=== PATIENT | female | born 1950 | race American Indian/Alaskan Native ===

== ENCOUNTER 2017-07-20 11:15 | Outpatient (CLI) | payer MEDICARE ==
--- NOTE | 2017-07-20 13:31 | Ultrasound Report ---
RENAL ULTRASOUND: 07/20/17 CLINICAL: Right renal cyst on MRI. No comparison images and no report of the MRI. FINDINGS: High resolution ultrasound demonstrated normal renal collecting systems. Normal echogenicity of the kidneys. No renal mass, cyst or calculus. The right kidney measures 9.3 x 3.9 x 4.2-cm. The renal parenchyma measures 1.1-cm in thickness. The left kidney measures 9.4 x 5.4 x 4.7-cm. The renal parenchyma measures 1.6-cm in thickness. Normal urinary bladder with moderate distention and normal wall thickness. IMPRESSION: Normal kidneys. A right renal cyst is not identified to correlate with the reported cyst identified by MRI. This is understandable particularly if it is a small cyst since MRI may be more sensitive than ultrasound in identifying small cysts.
== END 2017-07-20 11:16 | disposition home or self-care (01) ==
LOC: SPVWC 11:15
PROVIDERS: ATTEND Internal Medicine
DX: N28.1 Cyst of kidney, acquired (principal); N32.89 Other specified disorders of bladder
CPT/HCPCS: 76770

== ENCOUNTER 2020-08-05 11:08 | Outpatient (CLI) | payer MEDICARE | END 2020-08-05 11:09 | disposition home or self-care (01) | LOC: SPVWC 11:08 | PROVIDERS: ATTEND Internal Medicine | DX: Z12.31 Encounter for screening mammogram for malignant neoplasm of breast (principal) | CPT/HCPCS: 77067 ==

== ENCOUNTER 2021-08-10 11:39 | Outpatient (CLI) | payer MEDICARE, BC ==
--- NOTE | 2021-08-11 08:07 | Mammography Report ---
DIGITAL SCREENING MAMMOGRAM WITH CAD, 08/10/2021 CLINICAL INFORMATION / INDICATION: Routine screening mammography. TECHNIQUE: Digital bilateral 2D mammography was obtained in the craniocaudal and mediolateral obliqu e projections. This examination was interpreted with the benefit of Computer-Aided Detection analysis . COMPARISON: 08/05/2020 FINDINGS: Breast Density: There are scattered areas of fibroglandular density. No dominant mass, suspicious calcifications, or architectural distortion in the right breast. There is questionable focal architectural distortion in the lateral left breast, seen best on the cc view. IMPRESSION: Questionable developing architectural distortion in the left lateral breast. Recommend sp ot compression views and possible left breast ultrasound. Follow up recommendation: Special View: Spot BI-RADS Category 0: Incomplete. Needs additional imaging evaluation and/or prior mammograms for louis patel. A "normal" or negative report should not discourage follow up or biopsy of a clinically significant f inding. A written summary of these findings will be mailed to the patient. The patient will be entered into a mammography reporting system which will generate a reminder letter for the patient's next appointmen t at the appropriate interval. The [employer] recommends yearly mammograms starting at age 40 and continuing as l robert as a woman is in good health. Breast MRI is recommended for women with an approximate 20-25% or greater lifetime risk of breast cancer, including women with a strong family history of breast or ova seng cancer or who have been treated for Hodgkin's disease. Signer Name: Dianelys Mancuso MD Signed: 08/11/2021 8:02 AM Workstation Name: [id number]
== END 2021-08-10 11:40 | disposition home or self-care (01) ==
LOC: SPVWC 11:39
PROVIDERS: ATTEND Internal Medicine
DX: Z12.31 Encounter for screening mammogram for malignant neoplasm of breast (principal); N64.89 Other specified disorders of breast
CPT/HCPCS: 77067

== ENCOUNTER 2021-08-25 13:14 | Outpatient (CLI) | payer MEDICARE, BC ==
--- NOTE | 2021-08-25 16:30 | Ultrasound Report ---
LEFT DIGITAL DIAGNOSTIC MAMMOGRAM WITH CAD , 08/25/2021 LEFT LIMITED BREAST ULTRASOUND CLINICAL INFORMATION / INDICATION: Abnormal screening mammogram. Screening recall of the left breast for possible architectural distortion TECHNIQUE: Digital left mammographic imaging was performed. Spot compression views were obtained. Shaw ited ultrasound was performed. This examination was interpreted with the benefit of Computer-Aided De tection (CAD) analysis. COMPARISON: Screening mammogram, 08/10/2021 and 08/05/2020 FINDINGS: Breast Density: There are scattered areas of fibroglandular density. MAMMOGRAPHIC FINDINGS: Spot compression views of the left breast demonstrate resolution of the previo usly noted questioned asymmetry in the lateral aspect of the breast. No suspicious mammographic findi ng is identified. ULTRASOUND FINDINGS: Targeted ultrasound evaluation was performed of the area of interest. Sonograp hic evaluation of the lateral left breast demonstrates no evidence of suspicious solid mass or shadow ing. A 4 mm cyst is incidentally noted at the 6:00 position. IMPRESSION: 1. The questioned asymmetry in the lateral left breast resolves with spot compression views and is li david related to overlapping fibroglandular tissue. There is no sonographic abnormality. Therefore, a six-month follow-up left mammogram is recommended to confirm stability. Follow up recommendation: Short term follow up in 6 months. BI-RADS Category 3: Probably Benign. Followup in 6 months. A "normal" or negative report should not discourage follow up or biopsy of a clinically significant f inding. A written summary of these findings will be mailed to the patient. The patient will be entered into a mammography reporting system which will generate a reminder letter for the patient's next appointmen t at the appropriate interval. According to the [employer], yearly mammograms are recommended starting at age 40 and continuing as long as a woman is in good health. Breast MRI is recommended for women with an aldo roximately 20-25% or greater lifetime risk of breast cancer, including women with a strong family his tory of breast or ovarian cancer and women who have been treated for Hodgkin's disease. Signer Name: Rosy Patricia MD Signed: 08/25/2021 4:26 PM Workstation Name: [id number]
== END 2021-08-25 13:15 | disposition home or self-care (01) ==
LOC: SPVWC 13:14
PROVIDERS: ATTEND Internal Medicine
DX: N60.02 Solitary cyst of left breast (principal)

== ENCOUNTER 2022-03-02 12:25 | Outpatient (CLI) | payer MEDICARE, BC ==
--- NOTE | 2022-03-02 16:17 | Mammography Report ---
LEFT DIGITAL DIAGNOSTIC MAMMOGRAM WITH CAD CONVENTIONAL, 03/02/2022 LEFT LIMITED BREAST ULTRASOUND CLINICAL INFORMATION / INDICATION: Patient presents for six-month follow-up of a probably benign asym metric density in the left breast. R92.8 TECHNIQUE: Digital left mammographic imaging was performed. Spot compression views were obtained. Shaw ited ultrasound was performed. This examination was interpreted with the benefit of Computer-Aided De tection (CAD) analysis. COMPARISON: Prior mammogram 08/10/2021 and left mammogram and ultrasound 08/25/2021 FINDINGS: Breast Density: There are scattered areas of fibroglandular density. MAMMOGRAPHIC FINDINGS: There is again an asymmetric density seen in the central left breast, middle d epth, best seen on MLO view. This is less conspicuous on spot compression views and has the appearanc e of overlapping fibroglandular tissue. Targeted ultrasound was performed for confirmation. ULTRASOUND FINDINGS: Targeted ultrasound evaluation was performed of the area of interest. Targeted ultrasound of the left breast reveals a complicated cyst in the 6:00 position located 6 cm from the nipple, currently measuring up to 5 mm, previously measuring up to 4 mm. Additionally, there is a sma ll complicated cyst in the left breast 9:00 position located 4 cm from the nipple measuring up to 4 m m. There is no sonographic correlate for the asymmetric density seen mammographically, confirming edward t this represents overlapping fibroglandular tissue. IMPRESSION: 1. The previously described density in the left breast is less conspicuous on additional views and mo st compatible with overlapping fibroglandular tissue. A few benign complicated cysts are seen in the left breast. No suspicious mammographic or sonographic abnormality identified. Follow up recommendation: Back to schedule. BI-RADS Category 2: BENIGN. A "normal" or negative report should not discourage follow up or biopsy of a clinically significant f inding. A written summary of these findings will be mailed to the patient. The patient will be entered into a mammography reporting system which will generate a reminder letter for the patient's next appointmen t at the appropriate interval. According to the [employer], yearly mammograms are recommended starting at age 40 and continuing as long as a woman is in good health. Breast MRI is recommended for women with an aldo roximately 20-25% or greater lifetime risk of breast cancer, including women with a strong family his tory of breast or ovarian cancer and women who have been treated for Hodgkin's disease. Signer Name: Yuridia Angulo MD Signed: 03/02/2022 4:13 PM Workstation Name: [id number]
== END 2022-03-02 12:26 | disposition home or self-care (01) ==
LOC: MAMMO 12:25
PROVIDERS: ATTEND Internal Medicine
DX: N60.02 Solitary cyst of left breast (principal); N64.89 Other specified disorders of breast; R92.8 Other abnormal and inconclusive findings on diagnostic imaging of breast